=== PATIENT | male | born 1995 | race Caucasian/White ===

== ENCOUNTER → 2019-07-22 07:47 | Outpatient (BNVA) | payer OTHER, SELFPAY | PROVIDERS: Family Provider Family Medicine; PCP Nurse Practitioner Family; Visit Provider Nurse Practitioner | DX: F43.12 Post-traumatic stress disorder, chronic (principal); F33.9 Major depressive disorder, recurrent, unspecified | CPT/HCPCS: 99214 ==

== ENCOUNTER → 2020-05-15 08:30 | Outpatient (BNVA) | payer OTHER, SELFPAY | PROVIDERS: Family Provider Family Medicine; PCP Nurse Practitioner Family; Visit Provider Nurse Practitioner Psychiatric/Mental Health | DX: F43.12 Post-traumatic stress disorder, chronic (principal); F33.9 Major depressive disorder, recurrent, unspecified; F90.9 Attention-deficit hyperactivity disorder, unspecified type | CPT/HCPCS: 99213 ==

== ENCOUNTER → 2020-07-11 07:50 | Outpatient (BNVA) | payer OTHER, SELFPAY | PROVIDERS: Family Provider Family Medicine; PCP Nurse Practitioner Family; Visit Provider Nurse Practitioner Psychiatric/Mental Health | DX: F43.12 Post-traumatic stress disorder, chronic (principal); F33.9 Major depressive disorder, recurrent, unspecified; F90.9 Attention-deficit hyperactivity disorder, unspecified type | CPT/HCPCS: 99213 ==

== ENCOUNTER → 2020-08-08 07:47 | Outpatient (BNVA) | payer OTHER, SELFPAY | PROVIDERS: Family Provider Family Medicine; PCP Nurse Practitioner Family; Visit Provider Nurse Practitioner Psychiatric/Mental Health | DX: F90.9 Attention-deficit hyperactivity disorder, unspecified type (principal); F43.12 Post-traumatic stress disorder, chronic; F33.9 Major depressive disorder, recurrent, unspecified | CPT/HCPCS: 99212 ==

== ENCOUNTER → 2020-10-03 07:42 | Outpatient (BNVA) | payer OTHER, SELFPAY | PROVIDERS: Family Provider Family Medicine; PCP Nurse Practitioner Family; Visit Provider Nurse Practitioner Psychiatric/Mental Health | DX: F90.9 Attention-deficit hyperactivity disorder, unspecified type (principal); F43.12 Post-traumatic stress disorder, chronic; F33.9 Major depressive disorder, recurrent, unspecified | CPT/HCPCS: 99214 ==

== ENCOUNTER 2022-12-17 12:30 | Emergency (ER) | payer OTHER, SELFPAY ==
[2022-12-17 12:35] VITALS: BP 125/73; PULSE 74; RESP 16; TEMP 36.9; O2SAT 100; BMI 28.1
--- NOTE | 2022-12-17 13:09 | XR_ITS ---
WS: [id number] Exam: XR foot LT min 3V* [id number] Date/Time of Exam: 12/17/2022 1:12 PM Reason For Exam: injury No acute fracture or dislocation noted. No soft tissue foreign bodies are identified. Hardware noted in the distal tibia and fibula. XR/XR foot LT min 3V* [id number] IMPRESSION: 1. Negative left foot.
--- NOTE | 2022-12-17 13:53 | W.ED.LOWEXIN ---
HPI - Extremity Injury (Lower) General: Chief Complaint: Extremity Injury, Lower Stated Complaint: Left foot injury Time Seen by Provider: 12/17/22 13:17 Source: patient Mode of arrival: ambulatory Limitations: no limitations History of Present Illness: Patient is a nice 27-year-old male who presents to ED today for evaluation of left foot injury that he sustained just [place] to [place]. He states he was in some [place] and believes he caught the lateral aspect of the left foot on some rocks. Has been ambulatory without difficulty since the incident. complaint: foot injury Onset (ago): hour(s) Injury: Left: foot Place: street/outdoors Severity: mild Relieving factors: immobilization Exacerbating factors: weight bearing and movement Context: direct blow Associated symptoms: Reports no associated symptoms Other symptoms: none Review of Systems Musc: Reports: extremity pain (L foot) and extremity swelling (L foot) Neuro: Denies: numbness in extremities or sensory changes PFS ED PFSH: Medical History ADHD (attention deficit hyperactivity disorder) Reports following symptoms often or very often: Difficulty wrapping up details of projects; difficulty with organization and task completion; difficulty remembering appointments and obligations; difficulty getting started on tasks that require a lot of thought; fidgeting and squirming when sitting for prolonged periods; hyperactive/overly active/feeling compelled to do things; making careless mistakes in the workplace; difficulty sustaining attention and activities such as reading, watching movies, and difficulty remembering what he has read; difficulty with listening and needs repeat directions; difficulty following through on tasks; loses important items; feels easily distracted; exhibits forgetfulness in daily activities; refer to ADHD rating scales and ADHD self-report screener in chart for further details. Chronic post-traumatic stress disorder (PTSD) Major depression in full remission Major depressive disorder, recurrent episode Major depressive disorder, recurrent, in partial remission Physical Exam Const: COMMON NORMALS: no acute distress, average body habitus, no limitations, healthy appearing, alert and well nourished Extremity: COMMON NORMALS: capillary refill normal GENERAL: Yes normal exam except as noted LEFT LOWER EXTREMITY: Yes foot & digits Feet w/LR Ind Top: 1. TTP; mild ecchymosis present; no bony deformities noted; no abrasions/lacerations/webbing injuries Neuro: COMMON NORMALS: moves all extremities, no focal motor deficits and no sensory deficits noted SENSORIUM/ORIENTATION: Yes alert Course Vital Signs: Vital signs: Vital Signs Temperature 98.5 F 12/17/22 12:35 Pulse Rate 74 12/17/22 12:35 Respiratory Rate 16 12/17/22 12:35 Blood Pressure 125/73 12/17/22 12:35 Pulse Oximetry 100 12/17/22 12:35 Oxygen Delivery Me thod Room Air 12/17/22 12:35 MDM - Extremity Injury (Lower) Medical Decision Making Radiology read of left foot is negative. On personal interpretation there could be a small nondisplaced fracture of the distal phalanx of the fifth digit seen on AP view. Recommend patient treat this with hard soled/supportive shoes. He can follow-up with primary care in 2-3 weeks if symptoms do not seem to be improving. Lab Data Radiology Impressions Foot X-Ray 12/17/22 13:09 IMPRESSION: 1. Negative left foot. Discharge Plan Discharge Patient Disposition: Home Clinical Impression: Injury of foot, left Qualifiers: Encounter type: initial encounter Qualified Code(s): S99.922A - Unspecified injury of left foot, initial encounter Condition: Stable Prescriptions: No Action hydroxyzine pamoate 50 mg capsule 50 mg PO BID PRN (Reason: anxiety) Qty: 60 2RF Rx Instructions: Take one capsule up to twice daily, if needed for anxiety dextroamphetamine-amphetamine [Adderall XR] 20 mg capsule,extended release 24hr 40 mg PO QAM 30 Days Qty: 60 0RF Rx Instructions: Take two capsules by mouth every morning dextroamphetamine-amphetamine [Adderall XR] 20 mg capsule,extended release 24hr 40 mg PO QAM 30 Days Qty: 60 0RF Rx Instructions: Take two capsules by mouth every morning dextroamphetamine-amphetamine [Adderall XR] 20 mg capsule,extended release 24hr 40 mg PO QAM 30 Days Qty: 60 0RF Rx Instructions: Take two capsules by mouth every morning hydrocodone-acetaminophen [Victoria] 10-325 mg tablet 1 tab PO TID PRN dextroamphetamine-amphetamine [Adderall XR] 20 mg capsule,extended release 24hr 40 mg PO QAM 14 Days Qty: 28 0RF Rx Instructions: Take two capsules by mouth every morning Discharge Orders: Discharge ED (Routine); Ordered 12/17/22 Ordered By: Ann Padron Referrals: Jairo Luna [Primary Care Provider] - Coding Level of Care Code ED Chair Lift Operator for Cyndi Jackson
== END 2022-12-17 14:12 | disposition home or self-care (01) ==
PROVIDERS: Emergency Provider Physician Assistant; PCP Family Medicine
DX: S99.822A Other specified injuries of left foot, initial encounter (principal); X58.XXXA Exposure to other specified factors, initial encounter; Y92.828 Other wilderness area as the place of occurrence of the external cause
CPT/HCPCS: 73630; 99283